=== PATIENT | male | born 1935 | race Caucasian/White ===

== ENCOUNTER → 2021-04-06 | Outpatient (CLI) | payer MEDICARE, OTHER ==
--- NOTE | 2021-04-06 19:04 | US ---
EXAMINATION TYPE: US kidneys/renal and bladder DATE OF EXAM: 04/06/2021 COMPARISON: NONE CLINICAL HISTORY: 85-year-old male N39.0 recurrent urinary tract infection. TECHNIQUE: Multiple sonographic images of the kidneys and bladder are obtained. FINDINGS: EXAM MEASUREMENTS: Right Kidney: 10.0 x 3.8 x 4.6 cm Left Kidney: 11.7 x 4.4 x 4.9 cm Kidneys: No hydronephrosis on either side. Bladder: wnl Bilateral Jets seen: yes incidental finding of right posterior liver lobe septated cyst = 2.0cm. IMPRESSION: 1. No hydronephrosis. 2. A mildly complex 2.0 cm cyst of the right liver lobe incidentally seen. Six-month follow-up liver ultrasound to reassess.
== END | disposition home or self-care (01) ==
LOC: RADUSWWP 13:14
PROVIDERS: ATTEND Urology
DX: N39.0 Urinary tract infection, site not specified (principal); K76.89 Other specified diseases of liver
CPT/HCPCS: 76770